=== PATIENT | male | born 1940 | race Caucasian/White ===

== ENCOUNTER 2017-12-11 10:00 | Inpatient (IN) | payer MEDICARE ==
[2017-12-11] MEDS ORDERED: Heparin 10,000 UNITS/1 ML VIAL 30,000 UNITS in Sodium Chloride 0.9% 1,000 ML FS SCH (10:15)
[2017-12-11] MEDS ORDERED: CEFAZOLIN/Water 2 GM/20 ML SYRINGE ONE (11:05)
[2017-12-11 11:21] LABS: #Eosinphils 0.1 thou/uL (0.0-0.7); #Lymphocytes 1.2 thou/uL (1.20-3.40); #Monocytes 0.5 thou/uL (0.11-0.59); #Neutrophils 3.5 thou/uL (1.40-6.50); %Basophils 0.6 % (0.0-1.0); %Eosinophils 1.4 % (0.0-10.0); %Lymphocytes 22.3 % (21.0-51.0); %Monocytes 9.2 % (0.0-10.0); %Neutrophils 66.4 % (42.0-75.0); Hemoglobin 13.2 g/dL (14.0-18.0); Mean Corpuscular HGB CONC 33.2 g/dL (32.0-36.0); Mean Corpuscular Hemoglobin 32.4 pg (27.0-31.0); Mean Corpuscular Volume 97.7 fl (80.0-94.0); Mean Platelet Volume 8.4 fL (7.4-10.4); Platelet Count 253 thou/uL (130-400); RBC Distribution Width 11.3 % (11.5-14.5); Red Blood Cell (RBC) Count 4.08 mill/uL (4.70-6.10); White Blood Cell (WBC) Count 5.3 thou/uL (4.8-10.8)
[2017-12-11 11:39] LABS: Anion Gap 12 mmol/L (10-20); BUN (Urea Nitrogen) 18 mg/dL (8.4-25.7); Calc. Creatinine Clearance 77 mL/min (70-130); Calcium 9.6 mg/dL (7.8-10.44); Carbon Dioxide 27 mmol/L (23-31); Chloride 105 mmol/L (98-107); Estimated GFR-MDRD 88; Glucose 104 mg/dL (83-110); Potassium 4.1 mmol/L (3.5-5.1); Sodium 140 mmol/L (136-145)
[2017-12-11] MEDS ORDERED: Albumin 5% 500 ML ONE (12:11)
[2017-12-11] MEDS ORDERED: Vecuronium 10 MG VIAL ONE ×2 (12:15→14:40)
[2017-12-11] MEDS ORDERED: Fentanyl 100 MCG/2 ML VIAL ONE ×2 (12:15)
[2017-12-11] MEDS ORDERED: Midazolam HCl 5 mg/5 ml Vial ONE (12:15)
[2017-12-11] MEDS ORDERED: Midazolam HCl 2 mg/2 ml Vial ONE (12:32)
[2017-12-11] MEDS ORDERED: Cardioplegic Soln 1,000 ML BAG ONE (14:40)
[2017-12-11] MEDS ORDERED: Magnesium 5 GM/10 ML VIAL ONE (14:40)
[2017-12-11] MEDS ORDERED: Protamine Sulfate 250 MG/25 ML VIAL ONE (14:40)
[2017-12-11] MEDS ORDERED: Heparin 30,000 units/30 ml VIAL ONE (14:40)
[2017-12-11] MEDS ORDERED: Thrombin 5000 UNITS/5 ML VIAL ONE (14:40)
[2017-12-11] MEDS ORDERED: Lidocaine 2% PF 100 mg/5 ml Syringe ONE (14:40)
[2017-12-11] MEDS ORDERED: Calcium Chloride 1 GM/10 ML Abboject SYRINGE ONE (14:40)
[2017-12-11] MEDS ORDERED: Nitroglycerin 50 MG/250 ML BOT ONE (14:40)
[2017-12-11] MEDS ORDERED: Aminocaproic Acid 5 GM/20 ML VIAL ONE (14:40)
[2017-12-11] MEDS ORDERED: Papaverine 60 MG/2 ML VIAL ONE (14:40)
[2017-12-11] MEDS ORDERED: Sodium Bicarb 50 MEQ/50 ML VIAL ONE (14:40)
[2017-12-11] MEDS ORDERED: Potassium Chloride 60 MEQ/30 ML VIAL ONE (14:40)
[2017-12-11] MEDS ORDERED: Lidocaine 1% PF 5 ML VIAL ONE (14:40)
[2017-12-11] MEDS ORDERED: Propofol 200 MG/20 ML VIAL ONE (14:40)
[2017-12-11] MEDS ORDERED: DOPamine 400 MG/10 ML VIAL ONE (14:40)
[2017-12-11] MEDS ORDERED: Heparin 5,000 UNITS/ML VIAL ONE (14:40)
[2017-12-11] MEDS ORDERED: HYDROcodone/Acetaminophen 5/325 mg Tablet PO PRN ×2 (15:34)
[2017-12-11] MEDS ORDERED: Nitroglycerin 50 MG/250 ML BOT 250 ML IVPB PRN (15:34)
[2017-12-11] MEDS ORDERED: Mag-Al 1200 mg/1200 mg/30 ML UDCUP PO PRN (15:34)
[2017-12-11] MEDS ORDERED: Acetaminophen 325 MG TAB PO PRN (15:34)
[2017-12-11] MEDS ORDERED: Phenylephrine 10 MG/NS 250 ML 250 ML IVPB PRN (15:34)
[2017-12-11] MEDS ORDERED: Promethazine HCl 25 MG/ML VIAL IM PRN (15:34)
[2017-12-11] MEDS ORDERED: hydrALAZINE 20 MG/ML VIAL SLOW IVP PRN (15:34)
[2017-12-11] MEDS ORDERED: Fentanyl 100 MCG/2 ML VIAL SLOW IVP PRN ×2 (15:34)
[2017-12-11] MEDS ORDERED: Norepinephrine 8 MG/0.9% NS 250 ML IVPB PRN (15:34)
[2017-12-11] MEDS ORDERED: Bisacodyl 5 MG TAB PO PRN (15:34)
[2017-12-11] MEDS ORDERED: DOPamine 400 MG/D5W 250 ML 250 ML IVPB PRN (15:34)
[2017-12-11] MEDS ORDERED: Post-Op Insulin Drip Protocol IVPB ONE (15:34)
[2017-12-11] MEDS ORDERED: Hetastarch 6% 500 ML 500 ML IVPB PRN (15:34)
[2017-12-11] MEDS ORDERED: Guaifenesin DM 100-10/5 ML UDCUP PO PRN (15:34)
[2017-12-11] MEDS ORDERED: Ondansetron HCl/PF 4 MG/2 ML Vial IVP PRN (15:34)
[2017-12-11] MEDS ORDERED: Potassium Chloride 20 MEQ/100 ML PREMIX BAG IVPB PRN (15:34)
[2017-12-11] MEDS ORDERED: Bisacodyl 10 MG SUPP PR PRN (15:34)
[2017-12-11] MEDS ORDERED: Magnesium Sulfate 5 GM in Sodium Chloride 0.9% 1,000 ML IV SCH (15:45)
[2017-12-11 16:20] LABS: #Eosinphils 0.1 thou/uL (0.0-0.7); #Lymphocytes 0.9 thou/uL (1.20-3.40); #Monocytes 0.7 thou/uL (0.11-0.59); #Neutrophils 9.1 thou/uL (1.40-6.50); %Basophils 0.4 % (0.0-1.0); %Eosinophils 0.9 % (0.0-10.0); %Lymphocytes 8.6 % (21.0-51.0); %Monocytes 6.5 % (0.0-10.0); %Neutrophils 83.6 % (42.0-75.0); Mean Corpuscular HGB CONC 34.1 g/dL (32.0-36.0); Mean Corpuscular Hemoglobin 33.3 pg (27.0-31.0); Mean Corpuscular Volume 97.7 fl (80.0-94.0); Mean Platelet Volume 8.2 fL (7.4-10.4); Platelet Count 191 thou/uL (130-400); RBC Distribution Width 11.1 % (11.5-14.5); Red Blood Cell (RBC) Count 3.01 mill/uL (4.70-6.10); White Blood Cell (WBC) Count 10.9 thou/uL (4.8-10.8)
[2017-12-11] MEDS ORDERED: Dextrose 50% Abboject 50 ML SYRINGE SLOW IVP PRN (16:20)
[2017-12-11] MEDS ORDERED: Dextrose 5% in Water 1,000 ML IV PRN (16:20)
[2017-12-11 16:23] LABS: INR-International Normal Ratio 1.3; PTT 32.6 SEC (22.9-36.1); Prothrombin Time 16.4 SEC (12.0-14.7)
--- NOTE | 2017-12-11 16:29 | RAD ---
CHEST ONE VIEW: History: Post open heart surgery. Comparison: None. FINDINGS: Patient is intubated with endotracheal tube tip in good position at the level of the clavicles. Right subclavian central venous catheter tip at the right atrium. Mediastinal drain is present. No pneumothorax. Mild pulmonary venous congestion. IMPRESSION: Expected post-operative changes without complication. POS: OFF
[2017-12-11 16:40] LABS: Anion Gap 10 mmol/L (10-20); BUN (Urea Nitrogen) 15 mg/dL (8.4-25.7); Calc. Creatinine Clearance 97 mL/min (70-130); Carbon Dioxide 23 mmol/L (23-31); Chloride 109 mmol/L (98-107); Estimated GFR-MDRD Greater than 90; Glucose 127 mg/dL (83-110); Potassium 4.1 mmol/L (3.5-5.1); Sodium 138 mmol/L (136-145)
[2017-12-11] MEDS: Sodium Chloride 0.9% 1,000 ML IV SCH (16:48)
[2017-12-11] MEDS: Insulin Regular 300 UNITS/3 ML VIAL SC PRN ×2 (16:53→20:08)
[2017-12-11] MEDS: Ketorolac Tromethamine 30 MG/ML VIAL IVP SCH ×2 (17:04→23:21)
--- NOTE | 2017-12-11 17:33 | OP ---
PREOPERATIVE DIAGNOSIS: Coronary artery disease. PROCEDURE PERFORMED: Coronary artery bypass graft x2, left internal mammary artery of good quality t o a nice quality 2.5 mm left anterior descending, good quality saphenous vein 1.25 mm obtuse marginal . SURGEON: Federico Severino M.D. RAG SORTER: Stefano Grace M.D. ANESTHESIA: General. TRANSFUSION: None. PROCEDURE IN DETAIL: After adequate anesthesia had been obtained, the patient was prepped and draped . Dr. Grace harvested the left greater saphenous vein and then I performed a median sternotomy. Aft er opening the sternum, the right pleura was entered in one small area and the left internal mammary artery was then harvested, patient heparinized, mammary divided distally and passed posterior to the thymus gland. Following this, aorta and right atrium were cannulated. Cardiopulmonary bypass was in stituted and vessels were inspected for grafting. The aorta was cross-clamped and a liter of del Nid o cardioplegic solution was given. Following this, the right pleura was widely opened to allow the h eart rotated into the right chest to allow access to the AV groove. The obtuse marginal was dissecte d back next to the atrial appendage where it was opened and saphenous vein anastomosis completed with 7-0 Prolene suture. DE GUZMAN to LAD was then anastomosis completed following which the mammary pedicle was secured to the myocardium. A 1.5 mm probe was attempted to be passed through the distal obtuse m arginal anastomosis; however, it was too large and 1 mm probe easily passed. This was prior to tying the suture line on the OM graft. Crossclamp was removed, partial occluding clamp placed, and a sing le proximal anastomosis performed on the aortic root. The patient was then weaned from cardiopulmona ry bypass, cannulas were removed, and aortic cannulation site secured with 4-0 Prolene suture. After obtaining good hemostasis, mediastinal and bilateral drains were placed, following which the sternum was reapproximated with vancomycin paste on the sternal edges, platelet-enriched blood, and platelet -poor plasma using #7 interrupted wire. Subcutaneous tissue and skin were then closed in layers. Th e patient is to be taken to the recovery room in guarded condition.
[2017-12-11] MEDS: CEFAZOLIN/Water 2 GM/20 ML SYRINGE SLOW IVP SCH (20:08)
[2017-12-11] MEDS ORDERED: Famotidine/PF 20 mg/2ml Vial SLOW IVP SCH (21:00)
--- NOTE | 2017-12-11 21:08 | EKG ---
Test Reason : JB Blood Pressure : / mmHG Vent. Rate : 079 BPM Atrial Rate : 079 BPM P-R Int : 166 ms QRS Dur : 082 ms QT Int : 370 ms P-R-T Axes : 072 046 066 degrees QTc Int : 424 ms Normal sinus rhythm with sinus arrhythmia Minimal voltage criteria for LVH, may be normal variant Borderline ECG No previous ECGs available Confirmed by TAWANNA NAPIER ([id number]) on 12/11/2017 9:07:24 PM Referred By: BLACK Confirmed By:TAWANNA NAPIER
[2017-12-11 21:52] LABS: Hemoglobin 10.6 g/dL (14.0-18.0)
[2017-12-11] MEDS: Atorvastatin Calcium 20 MG TAB PO SCH (22:37)
[2017-12-12] MEDS: Insulin Regular 300 UNITS/3 ML VIAL SC PRN ×2 (00:07→04:09)
[2017-12-12 02:58] LABS: Actual Bicarbonate (HCO3a) 20.3 mEq/L (22-26); Base Excess (BEa) -2.6 mEq/L (0 (+/-) 2.5); CO2 Tension 28.8 mmHg (35.0-45.0); Calcium, Ionized 1.1 mmol/L (1.12-1.30); Hematocrit-ABG 29.4 % (42.0-52.0); Hemoglobin (Hb) 10.2 g/dL (14.0-18.0); O2 Tension (PaO2) 151.2 mmHg (80.0-100.0); pH, Arterial 7.47 (7.35-7.45)
[2017-12-12 02:59] LABS: Analyzer IN Cardio ER; Puncture Site ALINE
[2017-12-12] MEDS: CEFAZOLIN/Water 2 GM/20 ML SYRINGE SLOW IVP SCH (04:00)
[2017-12-12 04:29] LABS: #Lymphocytes 0.7 thou/uL (1.20-3.40); #Monocytes 1.1 thou/uL (0.11-0.59); #Neutrophils 7.7 thou/uL (1.40-6.50); %Basophils 0.4 % (0.0-1.0); %Eosinophils 0.1 % (0.0-10.0); %Lymphocytes 7.3 % (21.0-51.0); %Monocytes 11.8 % (0.0-10.0); %Neutrophils 80.3 % (42.0-75.0); Hemoglobin 10.2 g/dL (14.0-18.0); Mean Corpuscular Hemoglobin 33.3 pg (27.0-31.0); Mean Corpuscular Volume 97.9 fl (80.0-94.0); Mean Platelet Volume 8.6 fL (7.4-10.4); Platelet Count 175 thou/uL (130-400); RBC Distribution Width 11.3 % (11.5-14.5); Red Blood Cell (RBC) Count 3.07 mill/uL (4.70-6.10); White Blood Cell (WBC) Count 9.5 thou/uL (4.8-10.8)
[2017-12-12 04:37] LABS: Anion Gap 10 mmol/L (10-20); BUN (Urea Nitrogen) 15 mg/dL (8.4-25.7); Calc. Creatinine Clearance 92 mL/min (70-130); Calcium 7.9 mg/dL (7.8-10.44); Carbon Dioxide 25 mmol/L (23-31); Chloride 110 mmol/L (98-107); Estimated GFR-MDRD Greater than 90; Glucose 124 mg/dL (83-110); Potassium 4.6 mmol/L (3.5-5.1); Sodium 140 mmol/L (136-145)
[2017-12-12] MEDS: Sodium Chloride 0.9% 1,000 ML IV SCH (05:44)
[2017-12-12] MEDS: Ketorolac Tromethamine 30 MG/ML VIAL IVP SCH ×4 (05:55→23:54)
[2017-12-12] MEDS ORDERED: Mineral Oil ENEMA PR PRN (07:36)
[2017-12-12] MEDS ORDERED: Bisacodyl 5 MG TAB PO PRN (07:36)
[2017-12-12] MEDS ORDERED: Guaifenesin DM 100-10/5 ML UDCUP PO PRN (07:36)
[2017-12-12] MEDS ORDERED: HYDROcodone/Acetaminophen 5/325 mg Tablet PO PRN (07:36)
[2017-12-12] MEDS ORDERED: Bisacodyl 10 MG SUPP PR PRN (07:36)
[2017-12-12] MEDS ORDERED: Milk Of Magnesia 30 ML UDCUP PO PRN (07:36)
[2017-12-12] MEDS ORDERED: Mag-Al 1200 mg/1200 mg/30 ML UDCUP PO PRN (07:36)
[2017-12-12] MEDS ORDERED: Nitroglycerin 0.4 MG TAB 1 EACH SL PRN (07:36)
--- NOTE | 2017-12-12 08:58 | RAD ---
EXAM: ONE VIEW CHEST: HISTORY: Status post open heart surgery. COMPARISON: 12/11/17. FINDINGS: Interval removal of endotracheal tube. Stable right-sided central venous catheter. Mediastinal drai nage catheter is demonstrated. Stable configuration of the cardiac silhouette. There is atheroscler osis of the aorta. There are pleural and parenchymal changes in the lung bases. No definite pneumot horax. IMPRESSION: Findings compatible with recent open heart surgery. Interval removal of endotracheal tube. POS: [facility]
[2017-12-12] MEDS ORDERED: Aspirin 325 MG TAB PO SCH (09:00)
[2017-12-12] MEDS: Famotidine 20 MG TAB PO SCH ×2 (09:10→20:27)
[2017-12-12] MEDS: Aspirin 325 mg Enteric Coated Tablet PO SCH (09:10)
--- NOTE | 2017-12-12 10:54 | PDOC.CTH ---
Cardiology Progress Note - Subjective Pt. seen this AM. POD #1. after 2 V CABG with a DE GUZMAN to the LAd and SVG to the L -circumflex-OM. He is doing well and denies complaints. The chest tubes are still in.. No events overnight. - Objective Vital Signs Temp Pulse Resp BP Pulse Ox 12/12/17 08:00 98.0 F 80 19 95/48 L 100 12/12/17 07:00 98.0 F 12/12/17 04:00 98.1 F 12/12/17 00:00 98.1 F 98 Weight 165 lb 9.074 oz 12/11/17 12/12/17 12/13/17 06:59 06:59 06:59 Intake Total 1784 240 Output Total 1298 120 Balance 486 120 - Physical Examination General/Neuro: alert & oriented x3 Neck: carotid US brisk Lungs: CTA Heart: RRR Other PE findings: chest tubes in. - Telemetry Telemetry Rhythm: NSR - Labs Result Diagrams: 12/12/17 04:05 12/12/17 04:05 - Assessment/Plan 1. CAD: s/p CABG. Stable and doing well. Resume preop meds. 2. Postop anemia. Stable. Review of Systems - Review of Systems EENTM: reports: no symptoms reported Respiratory: reports: no symptoms reported Cardiac (ROS): reports: no symptoms reported ABD/GI: reports: no symptoms reported : reports: no symptoms reported Musculoskeletal: reports: no symptoms reported Neurological: reports: no symptoms reported
--- NOTE | 2017-12-12 12:04 | CON ---
DATE OF SERVICE: 12/12/2017 REASON FOR CONSULTATION: ICU patient. HISTORY OF PRESENT ILLNESS: The patient is a 76-year-old white male with past medical history significant for hyperlipidemia and chest discomfort that has been progressing over a period of several years, but gotten worse here over the last 2-3 weeks. He had a cardiac catheterization which demonstrated 90% left main disease. He was subsequently in his usual state of health to a surgeon who has scheduled him for 2-vessel bypass surgery. He is postop day #1 from that surgery and there were no complications. He is doing extraordinarily well and denies any current fevers, chills, nausea, vomiting or chest discomfort. He is tolerating p.o. He is already very active in getting out of bed. He is off of all drips. PAST MEDICAL HISTORY: 1. Dyslipidemia. 2. Benign prostatic hypertrophy. 3. Osteoarthritis. 4. Coronary artery disease. PAST SURGICAL HISTORY: 1. Appendectomy. 2. Tonsillectomy. 3. Laminectomy. 4. Right hernia repair x2. 5. Vasectomy. 6. Right shoulder surgery. 7. Coronary artery bypass graft x2 vessels in 2018. SOCIAL HISTORY: Negative for alcohol, tobacco or illicit drug use. He has no exposure to chemicals, asbestosis, or tuberculosis. FAMILY HISTORY: Noncontributory. ALLERGIES: No known drug allergies. MEDICATIONS: Most of his inpatient medications were reviewed. No specific updates were made at this time. REVIEW OF SYSTEMS: General, head, ears, eyes, nose, throat, cardiovascular, respiratory, GI, , musculoskeletal, neurologic and skin is negative except as mentioned in the HPI. PHYSICAL EXAMINATION: VITAL SIGNS: Afebrile, pulse 89, blood pressure 122/51, respirations 18, saturation 100% on room air. GENERAL: Patient is awake, alert, in no apparent distress. LUNGS: Excellent air entry. Dependent crackles are present on the left. HEART: Normal rate, regular. ABDOMEN: Soft, nontender, nondistended. Bowel sounds are positive. MUSCULOSKELETAL: No cyanosis or clubbing. There is no pitting in the bilateral lower extremities. GENITOURINARY: No Chamberlain catheter. NEUROLOGIC: Grossly nonfocal. LABORATORY DATA: WBC 9.5 with stable hemoglobin 10.2, platelets 175,000. INR 1.3. Basic metabolic profile is completely unremarkable. Glucose is perfect at 128. IMAGING: Chest x-ray demonstrates sternotomy wires are in good position. There is thoracostomy drain on the left. There is a little bit of atelectasis evident in the right base. No obvious acute cardiopulmonary abnormality is identified. There is a right subclavian central venous catheter which terminates in good position. ASSESSMENT: 1. Acute hypoxic respiratory failure, resolved. 2. Coronary artery disease, status post coronary artery bypass graft x2 vessels , postop day #1. PLAN: The patient is doing absolutely fantastic from this procedure. Pulmonary will continue to follow along while he remains in this location, but from my perspective, he is stable for transition to the floor. 70 minutes have been devoted to this patient in various activities. I personally reviewed all imaging studies and laboratory data noted within this document. For at least half of this time, I was interacting with the patient at the bedside or coordinating care with the care team. For the remainder of the time I was immediately available to the patient in the hospital unit. WOOD
[2017-12-12] MEDS: Atorvastatin Calcium 20 MG TAB PO SCH (20:27)
[2017-12-12] MEDS: HYDROcodone/Acetaminophen 5/325 mg Tablet PO PRN (20:49)
--- NOTE | 2017-12-12 22:02 | EKG ---
Test Reason : Blood Pressure : / mmHG Vent. Rate : 092 BPM Atrial Rate : 092 BPM P-R Int : 154 ms QRS Dur : 082 ms QT Int : 388 ms P-R-T Axes : 083 070 075 degrees QTc Int : 479 ms Normal sinus rhythm Minimal voltage criteria for LVH, may be normal variant Borderline ECG When compared with ECG of 11-DEC-2017 11:38, QT has lengthened Confirmed by TAWANNA NAPIER ([id number]) on 12/12/2017 10:02:03 PM Referred By: BLACK Confirmed By:TAWANNA NAPIER
[2017-12-13 04:54] LABS: Anion Gap 10 mmol/L (10-20); BUN (Urea Nitrogen) 14 mg/dL (8.4-25.7); Calc. Creatinine Clearance 81 mL/min (70-130); Calcium 8.5 mg/dL (7.8-10.44); Carbon Dioxide 25 mmol/L (23-31); Chloride 102 mmol/L (98-107); Estimated GFR-MDRD Greater than 90; Glucose 125 mg/dL (83-110); Potassium 4.4 mmol/L (3.5-5.1); Sodium 133 mmol/L (136-145)
[2017-12-13 05:09] LABS: Band 4 % (5-11); Hemoglobin 10.5 g/dL (14.0-18.0); Lymphocytes 5 % (21-51); MDiff Complete? YES; Macrocytosis SLIGHT = 6-15 cells (100X) (0-5/hpf); Mean Corpuscular HGB CONC 33.5 g/dL (32.0-36.0); Mean Corpuscular Hemoglobin 33.4 pg (27.0-31.0); Mean Corpuscular Volume 99.6 fl (80.0-94.0); Mean Platelet Volume 8.7 fL (7.4-10.4); Monocytes 11 % (0-10); Neutrophil 79 % (42-75); PLT Morphology Comment Appears Adequate; Platelet Count 199 thou/uL (130-400); RBC Distribution Width 11.5 % (11.5-14.5); Reactive Lymphocytes 1 % (0-10); Red Blood Cell (RBC) Count 3.16 mill/uL (4.70-6.10); White Blood Cell (WBC) Count 9.1 thou/uL (4.8-10.8)
[2017-12-13] MEDS ORDERED: Digoxin 0.5 MG/2 ML AMP SLOW IVP SCH (06:30)
[2017-12-13] MEDS: Ketorolac Tromethamine 30 MG/ML VIAL IVP SCH (07:30)
[2017-12-13] MEDS: HYDROcodone/Acetaminophen 5/325 mg Tablet PO PRN (08:56)
[2017-12-13] MEDS: Potassium Chloride 10 MEQ TAB PO SCH (08:56)
[2017-12-13] MEDS: Tamsulosin HCl 0.4 MG CAP PO SCH (08:56)
[2017-12-13] MEDS: Finasteride 5 MG TAB PO SCH (08:56)
[2017-12-13] MEDS: Furosemide 40 MG TAB PO SCH (08:57)
[2017-12-13] MEDS: Aspirin 325 mg Enteric Coated Tablet PO SCH (08:57)
[2017-12-13] MEDS: Famotidine 20 MG TAB PO SCH ×2 (08:57→20:13)
[2017-12-13] MEDS ORDERED: Sotalol HCl 80 MG TAB PO SCH ×2 (09:15→21:00)
[2017-12-13] MEDS ORDERED: Flecainide 50 MG TAB PO SCH ×2 (09:30)
--- NOTE | 2017-12-13 09:46 | PDOC.CTH ---
<Adry Rai - Last Filed: 12/13/17 09:50> Cardiology Progress Note - Subjective The pt seen and examined. No overnight events. No cardiac complaints. - Objective Vital Signs Temp Pulse Resp BP Pulse Ox 12/13/17 08:00 97.4 F L 121 H 20 118/55 L 98 12/13/17 06:36 110 H 12/13/17 04:14 97.8 F 86 16 121/76 96 12/12/17 22:30 97.9 F 84 18 115/56 L 95 Weight 167 lb 14.4 oz 12/12/17 12/13/17 12/14/17 06:59 06:59 06:59 Intake Total 1784 1300 Output Total 1298 450 Balance 486 850 - Physical Examination General/Neuro: alert & oriented x3 Neck: no JVD present Lungs: CTA Heart: other: (irregular) Abdomen: soft Extremities: other: (No edema) - Telemetry Telemetry Rhythm: Afib 90-120s - Labs Result Diagrams: 12/13/17 04:11 12/13/17 04:11 - Assessment/Plan 1. Post Afib - Remains in AFib with HR 90-120s since @ 0530 on 12/13/17; Flacainide 50mg BID; If he does not convert to back to SR by tomorrow AM, need to start anticoagulants for CVA prevention from AFib 2. CAD with s/p CABG x 2 with a DE GUZMAN-LAD and SVG to the E-gwgalydfye-SO. stable with ASA, BBlocker, Statin. 3. Hyperlipidemia - on Statin 4. Postop anemia - Stable. * If he does not convert to back to SR by tomorrow AM, need to start anticoagulants for CVA prevention from AFib if Surgeon is agreed with the plan. Review of Systems - Review of Systems Constitutional: reports: no symptoms reported EENTM: reports: no symptoms reported Respiratory: reports: no symptoms reported Cardiac (ROS): reports: no symptoms reported ABD/GI: reports: no symptoms reported <Colt aGribay - Last Filed: 12/13/17 14:20> Cardiology Progress Note - Objective Vital Signs Temp Pulse Pulse Pulse Resp BP BP 12/13/17 14:12 98.6 F 12/13/17 13:31 100.0 F H 12/13/17 12:40 98.8 F 85 12/13/17 12:00 100.4 F H 92 18 12/13/17 11:34 108 H 94 113/56 L 95/51 L 12/13/17 08:00 97.4 F L 121 H 20 12/13/17 06:36 110 H 12/13/17 04:14 97.8 F 86 16 BP Pulse Ox Pulse Ox Pulse Ox 12/13/17 14:12 12/13/17 13:31 12/13/17 12:40 106/51 L 12/13/17 12:00 95/51 L 100 12/13/17 11:34 97 100 12/13/17 08:00 118/55 L 98 12/13/17 06:36 12/13/17 04:14 121/76 96 Weight 167 lb 14.4 oz 12/12/17 12/13/17 12/14/17 06:59 06:59 06:59 Intake Total 1784 1300 Output Total 1298 450 Balance 486 850 - Labs Result Diagrams: 12/13/17 04:11 12/13/17 04:11 - Assessment/Plan Pt. seen and eval. by me. I agree with the A/P by the AIR MOTOR REPAIRER. We have discussed the plan and I agree. Overall he is doing well s/p CABG. The Afib. hopefully will convert to NSR with the flecainide. If so, I will continue that for 1 month and then d/c.
[2017-12-13] MEDS ORDERED: Carvedilol 3.125 MG TAB PO SCH ×2 (10:00)
[2017-12-13] MEDS: Acetaminophen 325 MG TAB PO PRN (13:19)
--- NOTE | 2017-12-13 14:39 | PRG ---
DATE OF SERVICE: 12/13/2017 SERVICE: Pulmonary Medicine. INTERVAL HISTORY: The patient is doing fine from a cardiovascular and respiratory standpoint. He is breathing comfortably. That being said, he has complete lack of energy with malaise. He also endor ses a little bit of myalgia. He has been working with physical therapy and got out of bed into a hollie ir a couple of times on a daily basis. He has been coughing a little bit. It was starting to settle down a little bit, but the sputum character is changing to pale yellow color. He had a low grade te mperature to 100 degrees. Otherwise, he is doing fairly well. PHYSICAL EXAMINATION: VITAL SIGNS: Afebrile currently with a T-max of 100.4, pulse 85, blood pressure 106/51, respirations 18, saturation 100% on room air. GENERAL: Patient is awake, alert, in no apparent distress. LUNGS: Decent air entry. There are some crackles present on the left. No rhonchi or wheezing are a ppreciated. HEART: Normal rate, regular. ABDOMEN: Soft, nontender, nondistended. Bowel sounds are positive. MUSCULOSKELETAL: No cyanosis or clubbing. No pitting in the bilateral lower extremities. NEUROLOGIC: Grossly nonfocal. LABORATORY DATA: WBC 9.1, hemoglobin 10.5, platelets 199,000. INR 1.3. Basic metabolic profile is essentially unremarkable with a sodium of 133. ASSESSMENT: 1. Acute hypoxic respiratory failure, resolved. 2. Coronary artery disease, status post coronary bypass graft x2 vessels, postoperative day #1. 3. Low grade temperature of 100.4 degrees. DISCUSSION AND PLAN: If the patient has a real fever, we will dewey culture him and also do a respirat ory virus profile as he seems to have significant malaise and a little myalgia, possibly consistent w ith viral prodrome. We will continue making efforts on mobilize the patient. If dewey culture is perf ormed because he develops increasing signs of sepsis, empiric antibiotics need to be strongly conside red. Pulmonary will continue to follow through the weekend.
[2017-12-13] MEDS: Carvedilol 3.125 MG TAB PO SCH (17:04)
[2017-12-13] MEDS: Atorvastatin Calcium 20 MG TAB PO SCH (20:13)
[2017-12-13] MEDS: Flecainide 50 MG TAB PO SCH (20:13)
[2017-12-13] MEDS ORDERED: Doxazosin Mesylate 4 MG TAB PO SCH (21:00)
[2017-12-14] MEDS: Acetaminophen 325 MG TAB PO PRN (03:56)
[2017-12-14] MEDS: Flecainide 50 MG TAB PO SCH (10:06)
[2017-12-14] MEDS: Potassium Chloride 10 MEQ TAB PO SCH (10:07)
[2017-12-14] MEDS: Finasteride 5 MG TAB PO SCH (10:07)
[2017-12-14] MEDS: Furosemide 40 MG TAB PO SCH (10:07)
[2017-12-14] MEDS: Tamsulosin HCl 0.4 MG CAP PO SCH (10:07)
[2017-12-14] MEDS: Famotidine 20 MG TAB PO SCH ×2 (10:08→20:00)
[2017-12-14] MEDS: Carvedilol 3.125 MG TAB PO SCH (10:08)
[2017-12-14] MEDS: Aspirin 325 mg Enteric Coated Tablet PO SCH (10:08)
--- NOTE | 2017-12-14 13:29 | PRG ---
DATE OF SERVICE: 12/14/2017 SUBJECTIVE: This morning, he is awake, alert, and is weak. No cough. OBJECTIVE: VITAL SIGNS: Sats are 96 on room air, respirations 18, temperature 99, blood pressure 96/52. CHEST: Decreased breath sounds, no wheezing. CARDIAC: Normal S1, S2. IMPRESSION: Status post coronary artery bypass graft, bronchitis, low-grade fever. Continue nebulizer treatments and supportive care. We will follow.
--- NOTE | 2017-12-14 17:12 | PDOC.CTH ---
Cardiology Progress Note - Subjective He is doing well. He walked with PT today and is worn out afterwards. - Objective Vital Signs Temp Pulse Resp BP Pulse Ox 12/14/17 15:36 99.5 F 104 H 18 106/50 L 95 12/14/17 11:38 99.4 F 88 18 96/52 L 96 12/14/17 07:40 98.7 F 87 20 116/54 L 92 L Weight 166 lb 3.2 oz 12/13/17 12/14/17 12/15/17 06:59 06:59 06:59 Intake Total 1300 Output Total 450 400 Balance 850 -400 - Physical Examination General/Neuro: alert & oriented x3, NAD Neck: no JVD present Lungs: unlabored respirations Heart: other: (Irreg) Abdomen: NT/ND Extremities: + edema B (1+) - Telemetry Telemetry Rhythm: Aflutter varilable av blo - Labs Result Diagrams: 12/13/17 04:11 12/13/17 04:11 - Assessment/Plan 1. Severe LM disease. 2. Post op afib/flutter. 3. S/p CABG PLAN: - Continue flecainide, will increase dose to 100 mg BID. - If he does not convert to sinus within 48hrs will discuss full anticoagulation for prevention of stroke. Would continue for 1 month post surgery. - Continue BB as well. - He is symtomatic from afib/flutter and is not letting him do PT well. Will consider cardioversion if it does not resolve.
[2017-12-14] MEDS ORDERED: Flecainide 50 MG TAB PO SCH (18:00)
[2017-12-14] MEDS ORDERED: Digoxin 0.5 MG/2 ML AMP SLOW IVP SCH (19:15)
[2017-12-14] MEDS: Atorvastatin Calcium 20 MG TAB PO SCH (20:00)
[2017-12-14] MEDS ORDERED: Metoprolol Tartrate 25 MG TAB PO SCH (21:00)
[2017-12-15] MEDS ORDERED: Diphenoxylate HCl/Atropine Tablet PO PRN (07:17)
[2017-12-15] MEDS: Carvedilol 6.25 MG TAB PO SCH ×2 (08:57→16:25)
[2017-12-15] MEDS: Flecainide 50 MG TAB PO SCH ×2 (08:57→21:29)
[2017-12-15] MEDS: Famotidine 20 MG TAB PO SCH ×2 (08:57→21:29)
[2017-12-15] MEDS: Aspirin 325 mg Enteric Coated Tablet PO SCH (08:57)
[2017-12-15] MEDS: Tamsulosin HCl 0.4 MG CAP PO SCH (08:58)
--- NOTE | 2017-12-15 13:03 | PDOC.CTH ---
Cardiology Progress Note - Subjective he is doing well. He has worked with PT today and feels better now that he is rate controlled. - Objective Vital Signs Temp Pulse Pulse Pulse Resp BP BP 12/15/17 12:30 98 102 H 127/58 L 12/15/17 12:00 98.1 F 79 18 12/15/17 08:57 142/64 H 12/15/17 08:00 97.7 F 112 H 16 12/15/17 04:00 98.8 F 95 16 BP BP BP Pulse Ox Pulse Ox Pulse Ox 12/15/17 12:30 121/58 L 94 L 97 12/15/17 12:00 108/50 L 95 12/15/17 08:57 12/15/17 08:00 142/64 H 96 12/15/17 04:00 124/98 H 94 L Weight 165 lb 14.4 oz 12/14/17 12/15/17 12/16/17 06:59 06:59 06:59 Output Total 400 Balance -400 - Physical Examination General/Neuro: alert & oriented x3, NAD Neck: no JVD present Lungs: unlabored respirations Heart: other: (irreg) Abdomen: NT/ND Extremities: other: (no edema) - Telemetry Telemetry Rhythm: Aflutter mike block 70's - Labs Result Diagrams: 12/13/17 04:11 12/13/17 04:11 - Assessment/Plan 1. Severe LM disease. 2. Post op afib/flutter. 3. S/p CABG PLAN: - Continue flecainide - Discussed with Dr. Severino about starting full anticoagulation and he is ok from surgical standpoint. Will star Lovenox. - Continue BB. - He is symptomatic from flutter and is not letting him do PT well. Will make NPO past midnight in preparation for RENATO/cardioversion if it does not resolve over noght. Dr. Garibay to follow tomorrow.
[2017-12-15] MEDS: Enoxaparin Sodium 80 MG/0.8 ML SYRINGE SC SCH (21:27)
[2017-12-15] MEDS: Atorvastatin Calcium 20 MG TAB PO SCH (21:29)
[2017-12-15] MEDS ORDERED: metroNIDAZOLE 500 MG TAB PO SCH (23:00)
[2017-12-16] MEDS: metroNIDAZOLE 500 MG TAB PO SCH ×3 (10:05→21:25)
[2017-12-16] MEDS: Flecainide 50 MG TAB PO SCH ×2 (10:05→21:25)
[2017-12-16] MEDS: Tamsulosin HCl 0.4 MG CAP PO SCH (10:06)
[2017-12-16] MEDS: Aspirin 325 mg Enteric Coated Tablet PO SCH (10:06)
[2017-12-16] MEDS: Famotidine 20 MG TAB PO SCH ×2 (10:06→21:25)
[2017-12-16] MEDS: Carvedilol 6.25 MG TAB PO SCH ×2 (10:06→16:25)
[2017-12-16] MEDS: Enoxaparin Sodium 80 MG/0.8 ML SYRINGE SC SCH ×2 (10:06→21:25)
--- NOTE | 2017-12-16 13:05 | PDOC.CTH ---
<Adry Rai - Last Filed: 12/16/17 13:07> Cardiology Progress Note - Subjective The pt seen and examined. No overnight events. No cardiac complaints. He has walked in the room for more than 10 times today without any cardiac complaints. - Objective Vital Signs Temp Pulse Resp BP BP Pulse Ox 12/16/17 11:40 98 F 82 18 105/55 L 98 12/16/17 10:06 127/92 H 12/16/17 08:30 97.9 F 78 18 12/16/17 08:00 97.9 F 78 18 134/68 98 12/16/17 05:02 98.2 F 89 16 120/59 L 93 L Weight 158 lb 8 oz 12/15/17 12/16/17 12/17/17 06:59 06:59 06:59 Intake Total 140 Output Total 400 Balance -400 140 - Physical Examination General/Neuro: alert & oriented x3 Neck: no JVD present Lungs: CTA Heart: RRR Abdomen: soft Extremities: other: (No edema) - Telemetry Telemetry Rhythm: SR - Labs Result Diagrams: 12/13/17 04:11 12/13/17 04:11 - Assessment/Plan 1. Post-op Afib - Afib @ 0530 on 12/13/17 to SR @ 0340 on 12/16/17 with Flacainide 50mg BID and Lovenox BID and ASA; order EP consult 2. CAD with s/p CABG x 2 with a DE GUZMAN-LAD and SVG to the L-sjewoqweoh-SU. stable with ASA, BBlocker, Statin. 3. Hyperlipidemia - on Statin 4. Postop anemia - Stable. 5. C-diff - stable; MAR reviewed Review of Systems - Review of Systems Constitutional: reports: no symptoms reported EENTM: reports: no symptoms reported Respiratory: reports: no symptoms reported Cardiac (ROS): reports: no symptoms reported ABD/GI: reports: no symptoms reported : reports: no symptoms reported Musculoskeletal: reports: no symptoms reported <Colt Garibay - Last Filed: 12/16/17 16:47> Cardiology Progress Note - Objective Vital Signs Temp Pulse Pulse Pulse Resp BP BP 12/16/17 16:25 127/92 H 12/16/17 16:00 98 F 82 16 12/16/17 14:10 87 81 126/61 12/16/17 11:40 98 F 82 18 12/16/17 10:06 127/92 H 12/16/17 09:41 87 81 126/61 12/16/17 08:30 97.9 F 78 18 12/16/17 08:00 97.9 F 78 18 12/16/17 05:02 98.2 F 89 16 BP BP Pulse Ox Pulse Ox Pulse Ox 12/16/17 16:25 12/16/17 16:00 112/54 L 94 L 12/16/17 14:10 93/45 L 97 95 12/16/17 11:40 105/55 L 98 12/16/17 10:06 12/16/17 09:41 118/57 L 97 95 12/16/17 08:30 12/16/17 08:00 134/68 98 12/16/17 05:02 120/59 L 93 L Weight 158 lb 8 oz 12/15/17 12/16/17 12/17/17 06:59 06:59 06:59 Intake Total 140 Output Total 400 Balance -400 140 - Labs Result Diagrams: 12/13/17 04:11 12/13/17 04:11 - Assessment/Plan Pt. seen and eval. by me I agree withthe A/P by the OUTSOLE CASER. the aflutter has resolved. he is at risk of this returning. I will discuss with EP and request their opinion about possible ablation. This will likely need to be done when the C.Diff has improved. Otherwise he is doing well s/p CABG.
[2017-12-16] MEDS: Atorvastatin Calcium 20 MG TAB PO SCH (21:25)
[2017-12-17 05:52] LABS: Hemoglobin 11.1 g/dL (14.0-18.0); Platelet Count 361 thou/uL (130-400)
[2017-12-17] MEDS: Tamsulosin HCl 0.4 MG CAP PO SCH (09:30)
[2017-12-17] MEDS: Famotidine 20 MG TAB PO SCH ×2 (09:30→21:30)
[2017-12-17] MEDS: metroNIDAZOLE 500 MG TAB PO SCH ×3 (09:30→21:30)
[2017-12-17] MEDS: Carvedilol 6.25 MG TAB PO SCH ×2 (09:30→17:21)
[2017-12-17] MEDS: Aspirin 325 mg Enteric Coated Tablet PO SCH (09:30)
[2017-12-17] MEDS: Flecainide 50 MG TAB PO SCH ×2 (09:30→21:32)
[2017-12-17] MEDS: Enoxaparin Sodium 80 MG/0.8 ML SYRINGE SC SCH ×2 (09:30→21:29)
[2017-12-17 15:26] LABS: Actual Bicarbonate (HCO3a) 22.7 mEq/L (22-26); Base Excess (BEa) -0.7 mEq/L (0 (+/-) 2.5); CO2 Tension 33.5 mmHg (35.0-45.0); O2 Tension (PaO2) 466.3 mmHg (80.0-100.0); pH, Arterial 7.45 (7.35-7.45)
[2017-12-17 15:27] LABS: Analyzer IN Cardio OR; Calcium, Ionized 1.1 mmol/L (1.12-1.30); Hematocrit-ABG 30.4 % (42.0-52.0); Hemoglobin (Hb) 11.5 g/dL (14.0-18.0); Puncture Site ALINE
[2017-12-17 15:29] LABS: Analyzer IN Cardio OR
[2017-12-17 15:30] LABS: Actual Bicarbonate (HCO3a) 22.5 mEq/L (22-26); CO2 Tension 36.9 mmHg (35.0-45.0); O2 Tension (PaO2) 331.2 mmHg (80.0-100.0)
[2017-12-17 15:30] LABS: Actual Bicarbonate (HCO3v) 24 mEq/L (22-26); Base Excess -1.7 mEq/L (0 (+/- 2.5)); Calcium, Ionized 1.05 mmol/L (1.16-1.32); Chloride (ABG LAB) 104 mmol/L (98-106); Hematocrit-VBG 23.2 % (37-51); Hemoglobin (Hb) 8.4 g/dL (12.6-17.4); Potassium - ABG Lab 4.3 mmol/L (3.70-5.30); Sodium 139.7 mmol/L (133-146); pH (venous) 7.37 (7.35-7.45)
[2017-12-17 15:31] LABS: Analyzer IN Cardio OR; Base Excess (BEa) -1.9 mEq/L (0 (+/-) 2.5); Hemoglobin (Hb) 8.4 g/dL (14.0-18.0); Puncture Site ALINE
[2017-12-17 15:31] LABS: Actual Bicarbonate (HCO3a) 22.7 mEq/L (22-26); Base Excess (BEa) -1.6 mEq/L (0 (+/-) 2.5); CO2 Tension 35.9 mmHg (35.0-45.0); O2 Tension (PaO2) 430.5 mmHg (80.0-100.0); pH, Arterial 7.42 (7.35-7.45)
[2017-12-17 15:32] LABS: Analyzer IN Cardio OR; Calcium, Ionized 1.1 mmol/L (1.12-1.30); Hematocrit-ABG 24.9 % (42.0-52.0); Hemoglobin (Hb) 8.9 g/dL (14.0-18.0); Puncture Site ALINE
[2017-12-17] MEDS: Atorvastatin Calcium 20 MG TAB PO SCH (21:30)
--- NOTE | 2017-12-17 23:27 | PDOC.CTH ---
Cardiology Progress Note - Subjective Pt. seen and eval. by me. He feels a little better today but still having frequent stools.He denies any cardiac complaints. - Objective Vital Signs Temp Pulse Resp BP BP Pulse Ox 12/17/17 20:03 98.8 F 88 14 97/51 L 93 L 12/17/17 17:21 127/92 H 12/17/17 16:00 98.9 F 95 14 121/53 L 95 12/17/17 12:00 98.3 F 102 H 20 112/76 95 Weight 158 lb 14.4 oz 12/16/17 12/17/17 12/18/17 06:59 06:59 06:59 Intake Total 996 579 2601 Balance 975 395 7578 - Physical Examination General/Neuro: alert & oriented x3 Neck: carotid US brisk Lungs: CTA Heart: other: (irreg.) Abdomen: NT/ND - Labs Result Diagrams: 12/17/17 05:14 12/17/17 05:14 - Assessment/Plan 1. CAD: s/p CABG. doing well. 2. Afib/flutter. EP will see the pt. 3. C.Diff. continue Flagyl
--- NOTE | 2017-12-18 00:44 | CON ---
DATE OF CONSULTATION: 12/17/2017 ELECTROPHYSIOLOGY CONSULTATION REPORT REFERRING PHYSICIAN: Radha Garibay MD I am seeing Mr. 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 His problems are: 1. Postoperative paroxysmal atrial fibrillation/flutter. A. Flecainide use postoperatively organized the patient's atrial flutter, but still has recurrent at rial fibrillation. Intermittent sinus rhythm is also seen. 2. Coronary artery disease. A. Symptomatic dyspnea, prompting left heart catheterization noticing 90% left main disease, status post 2-vessel bypass surgery on 12/11/2017. 3. No history of LV dysfunction. 4. Mild postoperative anemia. 5. Postop bronchitis, low-grade fever. 6. History of dyslipidemia. ALLERGIES: None noted. MEDICATIONS: Medications at home include glucosamine and chondroitin, vitamin B12, vitamin C, turmer ic capsule, fish oil supplements, aspirin, Crestor, calcium carbonate, doxazosin. SUBJECTIVE: Mr. Augustin is here after he was discovered to have a left main disease, underwent 2-vess el coronary artery bypass grafting surgery on the on an elective basis. Postoperatively, his rec overy was marked by transient mild bronchitis, as well as developing event of atrial fibrillation. H bowen was treated with flecainide, but the flecainide seems to have organized his fibrillation to flutter . His rates intermittently are not well controlled. He actually returned to sinus rhythm, but again atrial fibrillation/flutter has been recurrent since. He has received Lovenox for anticoagulation. He has mild palpitations with these episodes. Denied dizziness or loss of consciousness. No chest pains. No fever, chills, or cough. REVIEW OF SYSTEMS: Rest of 12-point system is otherwise unremarkable. PAST MEDICAL HISTORY: As above. He also has a history of BPH, osteoarthritis. PAST SURGICAL HISTORY: Also includes the recent bypass surgery x2 vessels, appendectomy, tonsillecto my, laminectomy, right hernia repair x2, vasectomy, right shoulder surgery. FAMILY HISTORY: Noncontributory. OBJECTIVE DATA: VITAL SIGNS: Blood pressure currently 112/76, heart rate 102, respirations 20, temperature 98.3 degr ees Fahrenheit. GENERAL: Alert and oriented man in no apparent distress. NECK: Supple. Jugular veins are not distended. CHEST: Coarse. No crackles. CARDIAC: Heart sounds are irregular. S1, S2 are variable. No murmur or gallop. ABDOMEN: Benign. Bowel sounds are positive. EXTREMITIES: Lower extremities without edema, clubbing, or cyanosis. Pulses are adequate. NEUROLOGIC: The patient is nonfocal. MUSCULOSKELETAL: No joint swelling or deformities. SKIN: Without rash. DATABASE: The EKG is reviewed. Initial EKG reveals sinus rhythm on the with a rate of 79 beats per minute, nonspecific ST-T changes, QTC is 424 milliseconds. Subsequent EKGs revealed development of atrial fibrillation, showed there were PACs on the , and subsequent episodes of atrial fibrilla tion are noted and heart rates in the 120s. On the , the patient seems to have been sustaining a n typical atrial flutter with high rates in the 150s and 160s are documented. There is a clear trans ition from fibrillation to flutter was also seen. The flutter seems to be typical isthmus-dependent atrial flutter based on the EKGs and leads available to me. Subsequently, he is returning to sinus r hythm, but then further atrial flutter and fibrillation episodes are also seen. This is on the . LABORATORY DATA: White count is 9.1, hemoglobin 10.5, platelet count is 199. INR is 1.3. Sodium 13 3, potassium 4.4, BUN is 14, and creatinine is 0.8. ASSESSMENT AND PLAN: Mr. Augustin is a pleasant 76-year-old man with postoperative atrial fibrillation /flutter. This so far not sufficiently suppressive with 100 mg twice a day flecainide. We discussed treatment options. Atrial flutter ablation could be a consideration, but it would not t woody care of his atrial fibrillation tendency. This is likely made worse by the acute recovery from b ypass surgery. This could be a difficult proposition to increase the flecainide further in this miranda ent who was cleared for coronary artery disease, although not expecting him to have further myocardia l ischemia. On the other hand, it might be reasonable to consider switching him to a more potent ant iarrhythmic medication. This could include amiodarone if pulmonary status is stable versus Multaq. He will likely need anticoagulation long-term after requiring surgery. If atrial fibrillation episod es do not settle, he could clearly be a candidate for an ablation procedure as well. We will again discuss with Dr. Garibay. Thank you for the consult.
[2017-12-18] MEDS: Amiodarone 200 MG TAB PO SCH ×3 (07:54→20:36)
[2017-12-18] MEDS: Famotidine 20 MG TAB PO SCH ×2 (07:55→20:36)
[2017-12-18] MEDS: Enoxaparin Sodium 80 MG/0.8 ML SYRINGE SC SCH (07:55)
[2017-12-18] MEDS: Aspirin 81 mg Enteric Coated Tablet PO SCH (07:55)
[2017-12-18] MEDS: metroNIDAZOLE 500 MG TAB PO SCH ×3 (07:55→20:36)
[2017-12-18] MEDS: Tamsulosin HCl 0.4 MG CAP PO SCH (07:55)
[2017-12-18] MEDS: Carvedilol 6.25 MG TAB PO SCH ×2 (07:55→18:09)
--- NOTE | 2017-12-18 13:25 | PRG ---
DATE OF SERVICE: 12/18/2017 SUBJECTIVE: Mr. Augustin seems to be doing fair although he continues to have atrial fibrillation/flut ter with rapid rates. OBJECTIVE: VITAL SIGNS: Blood pressure 148/68, heart rate 123, respirations 20, temperature 98.6 degrees Fahren heit. GENERAL: He is alert and oriented man in no apparent distress. NECK: Supple. Jugular veins not distended. CHEST: Coarse without crackles. CARDIOVASCULAR: Heart sounds are irregularly irregular. S1, S2, variable. Midsternal scar noted. ABDOMEN: Benign. Bowel sounds positive. EXTREMITIES: Lower extremities without edema, clubbing or cyanosis. Telemetry screens reveals atypical atrial flutter/fibrillation alternating. LABORATORY DATA: None new. ASSESSMENT AND PLAN: Mr. Augustin is a pleasant 76-year-old man with history of left main disease, sta tus post bypass surgery this admission on 12/13/2017. He had atrial fibrillation and flutter postope ratively. Flecainide failed to control of the arrhythmias and we switched him to amiodarone now. Th e rates are reasonably controlled. Also, consider anticoagulation agents whenever it is surgically f easible. For now, he is on Lovenox. His flecainide was stopped yesterday. We will continue monitoring the transition of on telemet ry for at least another 24 hours.
[2017-12-18] MEDS: Acetaminophen 325 MG TAB PO PRN (14:04)
--- NOTE | 2017-12-18 14:43 | PDOC.CTH ---
Cardiology Progress Note - Subjective Pt. was seen today. No new events or complaints. He remains in Afib with RVR. - Objective Vital Signs Temp Pulse Resp BP BP BP Pulse Ox 12/18/17 14:02 99.4 F 12/18/17 11:57 101.7 F H 108 H 20 120/63 96 12/18/17 08:00 98.6 F 123 H 20 148/68 H 96 12/18/17 07:55 127/92 H 12/18/17 07:45 98.6 F 123 H 20 12/18/17 03:35 98.7 F 107 H 22 H 127/63 94 L Weight 166 lb 6.4 oz 12/17/17 12/18/17 12/19/17 06:59 06:59 06:59 Intake Total 960 1480 240 Balance 960 1480 240 - Physical Examination General/Neuro: alert & oriented x3 Neck: carotid US brisk Lungs: CTA Heart: other: (irreg.) Abdomen: NT/ND Other PE findings: sternal wound healing well. - Labs Result Diagrams: 12/17/17 05:14 12/17/17 05:14 - Assessment/Plan 1. Post Afib - Remains in and out AFib/flutter with HR 90-120s since @ 0530 on 12/13/17; Flecainide 50mg BID did not control the arrhythmias.;He will start amiodarone today. He may need cardioversion prior to d/c and then possible ablation in the future. He remains on Lovenox. Will need to switch to oral anticoagulation. 2. CAD with s/p CABG x 2 with a DE GUZMAN-LAD and SVG to the S-ryonvyzozr-YM. stable with ASA, BBlocker, Statin. 3. Hyperlipidemia - on Statin 4. Postop anemia - Stable. 5. C.Diff. He remains on Flagyl. Review of Systems - Review of Systems EENTM: reports: no symptoms reported Respiratory: reports: no symptoms reported Cardiac (ROS): reports: no symptoms reported ABD/GI: reports: diarrhea, poor appetite : reports: no symptoms reported Musculoskeletal: reports: no symptoms reported Skin: reports: no symptoms reported Neurological: reports: no symptoms reported
[2017-12-18] MEDS ORDERED: Digoxin 0.5 MG/2 ML AMP SLOW IVP SCH (15:00)
--- NOTE | 2017-12-18 17:24 | PRG ---
DATE OF SERVICE: 12/18/2017 SERVICE: Pulmonary Medicine. INTERVAL HISTORY: The patient is doing fine from a respiratory standpoint. He is on room air. David es any current fevers, chills, nausea, or vomiting. Otherwise, he is returning to his usual state of health. His heart remains regular. He just got put on new medications and takes couple of days to see whether or not it is going to control his rate, and convert him into sinus. That being said, he has no acute respiratory issues and his strength is improving day by day. He walked with physical th erapy and had no dyspnea. He is on room air. PHYSICAL EXAMINATION: VITAL SIGNS: T-max 101.7, pulse 123, blood pressure 120/59, respirations 20, saturation 96% on room air. GENERAL: The patient is awake and alert, in no apparent distress. LUNGS: Decent air entry. I do not appreciate prolonged expiratory phase or wheezing. There is no r honchi or crackles present. HEART: Normal rate and regular. ABDOMEN: Soft, nontender, and nondistended. Bowel sounds are positive. MUSCULOSKELETAL: No cyanosis or clubbing. There is no pitting in the bilateral lower extremities. NEUROLOGIC: Grossly nonfocal. LABORATORY DATA: Clostridium difficile antigen and toxin are positive. Respiratory virus panel was negative. ASSESSMENT: 1. Acute hypoxic respiratory failure, resolved. 2. Coronary artery disease, status post coronary artery bypass graft x2 vessels. 3. Sepsis without end organ damage. 4. Clostridium difficile colitis. DISCUSSION AND PLAN: The patient is currently doing well from a respiratory perspective. He has no further requirement for inpatient Pulmonary and Critical Care opinion. As such, we will sign off. P franciscaase call with additional questions or concerns moving forward.
[2017-12-18] MEDS: Apixaban 5 MG TAB PO SCH (20:35)
[2017-12-18] MEDS: Digoxin 0.5 MG/2 ML AMP SLOW IVP SCH (20:36)
[2017-12-18] MEDS: Atorvastatin Calcium 20 MG TAB PO SCH (20:36)
[2017-12-19] MEDS: Digoxin 0.5 MG/2 ML AMP SLOW IVP SCH (03:55)
[2017-12-19 09:24] VITALS: BMI 22.4
[2017-12-19] MEDS: Famotidine 20 MG TAB PO SCH ×2 (09:40→22:47)
[2017-12-19] MEDS: Tamsulosin HCl 0.4 MG CAP PO SCH (09:40)
[2017-12-19] MEDS: Aspirin 81 mg Enteric Coated Tablet PO SCH (09:40)
[2017-12-19] MEDS: Carvedilol 6.25 MG TAB PO SCH ×2 (09:40→18:04)
[2017-12-19] MEDS: Amiodarone 200 MG TAB PO SCH ×3 (09:40→22:46)
[2017-12-19] MEDS: Apixaban 5 MG TAB PO SCH ×2 (09:40→22:46)
[2017-12-19] MEDS: metroNIDAZOLE 500 MG TAB PO SCH ×3 (09:40→22:47)
[2017-12-19] MEDS: Digoxin 0.125 MG TAB PO SCH (09:41)
--- NOTE | 2017-12-19 12:19 | PRG ---
DATE OF SERVICE: 12/19/2017 I am seeing Mr. Augustin at our [facility] as an electrophysiology followup. SUBJECTIVE: Mr. Augustin seems to be doing fair. He has got significant palpitations on ambulation. OBJECTIVE: VITAL SIGNS: Blood pressure is 152/57, heart rate 90, respirations 18, temperature 98 degrees Fahren heit. GENERAL: He is an alert and oriented man in no apparent distress. NECK: Supple. Jugular veins not distended. CHEST: Coarse without crackles. CARDIOVASCULAR: Heart sounds are regular to rate and rhythm. No murmur or gallop. ABDOMEN: Benign. Bowel sounds positive. EXTREMITIES: Lower extremities without edema, clubbing or cyanosis. LABORATORY DATA: The EKG continues to reveal sustained atrial flutters with very typical morphology 2:1 AV conduction. Rates with this are over 150 beats per minute. LABORATORY DATA: None new. ASSESSMENT AND PLAN: Mr. Augustin is a 76-year-old man with prior history of coronary artery disease, bypass grafting surgery, atrial fibrillation/flutter postop. He had tried flecainide which organized his flutters to atrial flutter. This was transitioned to amiodarone which is still loading on. He is sustaining the atrial flutter currently. He also has some atypical flutters and coarse atrial fib rillation at times as well. These are more better rate controlled. I discussed the pros and cons of possible treatment options. Continue amiodarone therapy versus abla tion of atrial flutter circuit could be considered. It might be reasonable to proceed with the atria l flutter circuit which is relatively less extensive ablation procedure and might give us better rate control by eliminating the atrial flutter which tends to be the more rapid test to be with more rapi d ventricular rates. On the other hand, I would hold off on pulmonary venous isolation procedure unt il full recovery from the bypass surgery. Hence prolonged flutter episodes are the guidance for rupesh castillo of might be reasonable. I discussed these options with the patient, he understands the concept of the atrial flutter ablation . Risks and benefits detailed. He is willing to proceed understanding chance of infection, bleeding , tamponade, stroke, recurrence, and continued atrial fibrillation as well.
--- NOTE | 2017-12-19 12:58 | PDOC.CTH ---
<Adry Rai - Last Filed: 12/19/17 12:56> Cardiology Progress Note - Subjective The pt seen and examined. No overnight events. No cardiac complaints. His HR was up to 160s with walking with PTs today. He could feel fluttering in his chest during the - Objective Vital Signs Temp Pulse Resp BP Pulse Ox 12/19/17 09:41 86 12/19/17 08:00 98.0 F 90 18 115/57 L 95 12/19/17 04:00 97.8 F 84 18 117/62 96 Admit Weight 166 lb Weight 151 lb 12.8 oz 12/18/17 12/19/17 12/20/17 06:59 06:59 06:59 Intake Total 1480 980 Output Total 400 Balance 1480 580 - Physical Examination General/Neuro: alert & oriented x3 Neck: no JVD present Lungs: CTA Heart: other: (irregular) Abdomen: soft Extremities: other: (No edema) - Telemetry Telemetry Rhythm: Aflutter 90-110s - Labs Result Diagrams: 12/17/17 05:14 12/17/17 05:14 - Assessment/Plan 1. Post Afib - Remains in Aflutter with HR 90-110s and up to 160s with walking with PT today. Plan for Aflutter ablation tomorrow by Dr Acosta; on Eliquis 5mg BID. 2. CAD with s/p CABG x 2 on 12/11/17 with a DE GUZMAN-LAD and SVG to the L-circumflex -OM. stable with ASA, BBlocker, Statin. 3. Hyperlipidemia - on Statin 4. Postop anemia - Stable. 5. C.Diff. He remains on Flagyl. MAR reviewed * AFlutter ablation by Dr Acosta tomorrow Review of Systems - Review of Systems Constitutional: reports: no symptoms reported EENTM: reports: no symptoms reported Respiratory: reports: no symptoms reported Cardiac (ROS): reports: see HPI ABD/GI: reports: no symptoms reported : reports: no symptoms reported <Colt Garibay - Last Filed: 12/19/17 17:06> Cardiology Progress Note - Objective Vital Signs Temp Pulse Pulse Pulse Resp BP BP 12/19/17 12:00 82 18 12/19/17 09:50 103 H 84 145/62 H 115/52 L 12/19/17 09:41 86 12/19/17 08:00 98.0 F 82 18 BP Pulse Ox Pulse Ox Pulse Ox 12/19/17 12:00 145/62 H 98 12/19/17 09:50 98 95 12/19/17 09:41 12/19/17 08:00 115/57 L 95 Admit Weight 166 lb Weight 151 lb 12.8 oz 12/18/17 12/19/17 12/20/17 06:59 06:59 06:59 Intake Total 1480 980 Output Total 400 Balance 1480 580 - Labs Result Diagrams: 12/17/17 05:14 12/17/17 05:14 - Assessment/Plan Pt. seen and eval. by me. I agree with the A/P by the NOTE TAKER.
[2017-12-19] MEDS: Atorvastatin Calcium 20 MG TAB PO SCH (22:46)
[2017-12-20] MEDS: Carvedilol 6.25 MG TAB PO SCH ×2 (08:25→21:39)
[2017-12-20] MEDS: Tamsulosin HCl 0.4 MG CAP PO SCH (08:26)
[2017-12-20] MEDS: metroNIDAZOLE 500 MG TAB PO SCH ×3 (08:27→21:32)
[2017-12-20] MEDS: Famotidine 20 MG TAB PO SCH ×2 (08:27→21:32)
[2017-12-20] MEDS: Amiodarone 200 MG TAB PO SCH ×3 (08:27→21:32)
[2017-12-20] MEDS ORDERED: Lidocaine 1% (PF) 30 ML VIAL ONE (15:18)
[2017-12-20] MEDS ORDERED: Heparin 10,000 UNITS/1 ML VIAL ONE (15:19)
[2017-12-20] MEDS: Digoxin 0.125 MG TAB PO SCH (15:20)
[2017-12-20] MEDS: Apixaban 5 MG TAB PO SCH ×3 (15:20→22:49)
[2017-12-20] MEDS: Aspirin 81 mg Enteric Coated Tablet PO SCH (15:20)
[2017-12-20] MEDS ORDERED: Propofol 200 MG/20 ML VIAL ONE (16:01)
[2017-12-20] MEDS ORDERED: PHENYLEPHRINE-NS 100 MCG/ML 10 ML SYRINGE ONE (16:01)
[2017-12-20] MEDS ORDERED: Propofol 1,000 MG/100 ML VIAL IV ONE (16:34)
[2017-12-20] MEDS ORDERED: Clindamycin/D5W 900 mg/50 ml Premix Bag ONE (17:13)
[2017-12-20] MEDS ORDERED: Morphine Sulfate 2 MG/ML SYRINGE SLOW IVP PRN (17:50)
[2017-12-20] MEDS ORDERED: Meperidine HCl/PF 25 MG/ML VIAL SLOW IVP PRN (17:50)
[2017-12-20] MEDS ORDERED: Ondansetron HCl/PF 4 MG/2 ML Vial IVP PRN ×2 (17:50→20:20)
[2017-12-20] MEDS ORDERED: Promethazine HCl 25 MG/ML VIAL SLOW IVP PRN (17:50)
[2017-12-20] MEDS ORDERED: Promethazine HCl 25 MG/ML VIAL IM PRN (17:50)
[2017-12-20] MEDS ORDERED: Fentanyl 100 MCG/2 ML VIAL ONE (18:18)
[2017-12-20] MEDS ORDERED: Mag-Al 1200 mg/1200 mg/30 ML UDCUP PO PRN (20:20)
[2017-12-20] MEDS ORDERED: diphenhydrAMINE 25 MG CAP PO PRN (20:20)
[2017-12-20] MEDS ORDERED: Nitroglycerin 0.4 MG TAB (25 Tab Bottle) SL PRN (20:20)
[2017-12-20] MEDS ORDERED: Silver Sulfadiazine 1% Cream 50 GM JAR TOP PRN (20:20)
[2017-12-20] MEDS ORDERED: traMADol HCl 50 MG TAB PO PRN (20:20)
[2017-12-20] MEDS ORDERED: Bisacodyl 5 MG TAB PO PRN (20:20)
[2017-12-20] MEDS ORDERED: Temazepam 15 MG CAP PO PRN (20:20)
[2017-12-20] MEDS ORDERED: Bisacodyl 10 MG SUPP PR PRN (20:20)
[2017-12-20] MEDS ORDERED: Acetaminophen 325 MG TAB PO PRN (20:20)
[2017-12-20] MEDS: Atorvastatin Calcium 20 MG TAB PO SCH (21:32)
--- NOTE | 2017-12-21 00:34 | CCLSPC ---
ELECTROPHYSIOLOGY STUDY AND RADIOFREQUENCY ABLATION REPORT DATE OF PROCEDURE: 12/20/2017 REFERRING PHYSICIAN: Dr. Garibay. REASON FOR PROCEDURE: Mr. Augustin is a 76-year-old male with prior history of left main disease statu s post 2-vessel bypass surgery. Post-bypass surgery, he developed atrial fibrillation and flutter. Atrial fibrillation was controlled with antiarrhythmic agents like flecainide and then eventually ami odarone, but the flutter has been recurrent with rapid rates. He is here for EP study and radiofrequency ablation with a possible flutter circuit. The patient has been on Eliquis and has spontaneously converted to sinus rhythm prior to the procedure. PROCEDURE IN DETAIL: The patient received deep sedation by Anesthesia specialist. After adequate le ang of sedation achieved and the right femoral vein was prepped and draped and anesthetized using sub cutaneous lidocaine. The right femoral vein was accessed using ultrasound guidance and a two 8-Frenc h short sheaths were introduced. Through this, a decapolar CS catheter was advanced to the right atr ial His bundle, right ventricular and eventually through the CS position. Pacing, mapping and record ing were performed in each chamber. Following that, the basic EP study was obtained with the followi ng findings. The HV was normal in 4 milliseconds. The sinus cycle length 808, MT 74 and QR 69, abdirashid ected sinus node recovery time was 400 milliseconds. The AV Wenckebach cycle length was found at mil liseconds. Burst atrial pacing initially did not induce atrial arrhythmias, but then we proceeded wi th a cavotricuspid isthmus ablation with CS ------ pacing. This was not hence the typical atrial flu tter appearance on EKGs on chart. Following that, the cavotricuspid isthmus ablation was performed. ------ were pursued during the cav otricuspid isthmus ablation, atrial fibrillation and atrial flutter, both initiated. Eventually, atr ial flutter eliminated while atrial fibrillation remained despite the added IV amiodarone. Exact tra nsisthmus block was difficult to assess. At this point, the decision was made to terminate the procedure. CONCLUSION: 1. Inducible atrial flutter and fibrillation, both. 2. Successful cavotricuspid isthmus ablation. 3. Borderline sinus akosua, normal AV akosua function. 4. Atrial fibrillation present at the end of the case. IV amiodarone was given. PLAN: 1. Continue p.o. amiodarone for rate control of atrial fibrillation and possibly suppression of atri al fibrillation as well. 2. Continue oral anticoagulation. POS: [facility]
[2017-12-21] MEDS: Famotidine 20 MG TAB PO SCH ×2 (08:53→20:03)
[2017-12-21] MEDS: metroNIDAZOLE 500 MG TAB PO SCH ×3 (08:53→20:03)
[2017-12-21] MEDS: Aspirin 81 mg Enteric Coated Tablet PO SCH (08:53)
[2017-12-21] MEDS: Amiodarone 200 MG TAB PO SCH ×3 (08:53→20:03)
[2017-12-21] MEDS: Tamsulosin HCl 0.4 MG CAP PO SCH (08:53)
[2017-12-21] MEDS: Apixaban 5 MG TAB PO SCH ×2 (08:53→20:03)
[2017-12-21] MEDS: Carvedilol 6.25 MG TAB PO SCH (08:53)
[2017-12-21] MEDS: Digoxin 0.125 MG TAB PO SCH (08:54)
[2017-12-21] MEDS ORDERED: Carvedilol 3.125 MG TAB PO SCH ×3 (13:00→17:00)
[2017-12-21] MEDS: Atorvastatin Calcium 20 MG TAB PO SCH (20:03)
[2017-12-22] MEDS ORDERED: Carvedilol 3.125 MG TAB PO SCH (08:00)
[2017-12-22] MEDS: Digoxin 0.125 MG TAB PO SCH (08:19)
[2017-12-22] MEDS: Aspirin 81 mg Enteric Coated Tablet PO SCH (08:19)
[2017-12-22] MEDS: Amiodarone 200 MG TAB PO SCH (08:19)
[2017-12-22] MEDS: Apixaban 5 MG TAB PO SCH (08:19)
[2017-12-22] MEDS: metroNIDAZOLE 500 MG TAB PO SCH (08:20)
[2017-12-22] MEDS: Tamsulosin HCl 0.4 MG CAP PO SCH (08:20)
[2017-12-22] MEDS: Famotidine 20 MG TAB PO SCH (08:20)
[2017-12-22 08:22] VITALS: TEMP 97.4
--- NOTE | 2017-12-22 11:49 | DIS ---
DATE OF ADMISSION: 12/11/2017 DATE OF DISCHARGE: 12/22/2017 PRINCIPAL DIAGNOSIS: Coronary artery disease. SECONDARY DIAGNOSIS: Atrial fibrillation and flutter. PROCEDURES PERFORMED: Coronary artery bypass grafting x2 with left internal mammary artery to the LA D and reverse greater saphenous vein graft from aorta to obtuse marginal on 12/11/2017, EP study and radiofrequency ablation on 12/20/2017. HISTORY OF PRESENT ILLNESS AND HOSPITAL COURSE: The patient is a 76-year-old man with about a 2-year history of dyspnea on exertion and then about 2-1/2 weeks ago, began developing a gripping chest dis comfort. Cardiac catheterization demonstrated very high grade left main lesion and he was admitted f or elective revascularization. He initially did rather well. He had some problems related to urinar y dribbling that was relieved with the addition of Flomax and Proscar. He developed atrial fibrillat ion/flutter that initially was rate controlled, but persisted and did not definitively convert. He d eveloped diarrhea that was positive for C. difficile toxin and was started on Flagyl. After several days of atrial flutter with rate control, he spontaneously converted to sinus the morning that he was taken for an ablation. 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 He spontaneously converted the afternoon of postoperative day #10 and remained in sinus rhythm. He has been anticoagulated with Eliquis. He is on amiodarone 200 mg t.i.d., Coreg 3.125 mg b.i.d., digoxin 0.125 mg a day, baby aspirin and Eliquis 5 mg b.i.d. He is restarting his Crestor and he is to complete a 10 day course of Flagyl 500 mg t.i.d. FOLLOWUP: Will be with Dr. Severino and his sole painter per them.
[2017-12-22 11:56] VITALS: BP 114/57
== END 2017-12-22 13:44 | disposition home or self-care (01) | DRG 235 ==
LOC: SURG A 10:00 → CCU 15:57 → 2SE 12-12 23:11 → 2NO 12-18 21:44
PROVIDERS: ADMIT Thoracic Surgery (Cardiothoracic Vascular Surgery); ATTEND Thoracic Surgery (Cardiothoracic Vascular Surgery)
PROC: 02100Z9 Bypass Coronary Artery, One Artery from Left Internal Mammary, Open Approach (ICD-10-PCS; principal; 2017-12-11)
PROC: 021009W Bypass Coronary Artery, One Artery from Aorta with Autologous Venous Tissue, Open Approach (ICD-10-PCS; 2017-12-11)
PROC: 06BQ4ZZ Excision of Left Saphenous Vein, Percutaneous Endoscopic Approach (ICD-10-PCS; 2017-12-11)
PROC: 5A1221Z Performance of Cardiac Output, Continuous (ICD-10-PCS; 2017-12-11)
PROC: 02583ZZ Destruction of Conduction Mechanism, Percutaneous Approach (ICD-10-PCS; 2017-12-20)
PROC: 4A023FZ Measurement of Cardiac Rhythm, Percutaneous Approach (ICD-10-PCS; 2017-12-20)
PROC: 4A0234Z Measurement of Cardiac Electrical Activity, Percutaneous Approach (ICD-10-PCS; 2017-12-20)
PROC: 02K83ZZ Map Conduction Mechanism, Percutaneous Approach (ICD-10-PCS; 2017-12-20)
DX: I25.10 Atherosclerotic heart disease of native coronary artery without angina pectoris (principal); J96.01 Acute respiratory failure with hypoxia; A04.72 Enterocolitis due to Clostridium difficile, not specified as recurrent; I48.3 Typical atrial flutter; J40 Bronchitis, not specified as acute or chronic; I48.0 Paroxysmal atrial fibrillation; D64.9 Anemia, unspecified; M19.90 Unspecified osteoarthritis, unspecified site; N40.0 Benign prostatic hyperplasia without lower urinary tract symptoms; E78.2 Mixed hyperlipidemia; Z82.49 Family history of ischemic heart disease and other diseases of the circulatory system
CPT/HCPCS: 36415; 36416; 71045; 76942; 80048; 82565; 82805; 85014; 85018; 85025; 85049; 85610; 85730; 86850; 86900; 86901; 87324; 87449; 87633; 87798; 93005; 93010; 93613; 93621; 93623; 93653; 93798; 94002; 94150; A4216; C1730; C1769; J0282; J1160; J1265; J1642; J1644; J1650; J1815; J1885; J2001; J2250; J2270; J2405; J2440; J2704; J2720; J3010; J3370; J3475; J3480; J3490; J7050; P9045; S0017; S0028

== ENCOUNTER 2018-02-12 09:57 | Outpatient (CLI) | payer MEDICARE ==
--- NOTE | 2018-02-13 06:22 | EKG ---
Test Reason : Blood Pressure : / mmHG Vent. Rate : 052 BPM Atrial Rate : 052 BPM P-R Int : 186 ms QRS Dur : 082 ms QT Int : 434 ms P-R-T Axes : 067 066 074 degrees QTc Int : 403 ms Sinus bradycardia Nonspecific T wave abnormality Abnormal ECG When compared with ECG of 11-DEC-2017 16:14, Vent. rate has decreased BY 40 BPM Nonspecific T wave abnormality now evident in Anterolateral leads QT has shortened Confirmed by TAWANNA NAPIER ([id number]) on 02/13/2018 6:09:05 AM Referred By: SOM Confirmed By:TAWANNA NAPIER
== END 2018-02-12 09:58 | disposition home or self-care (01) ==
LOC: LABBT 09:57
PROVIDERS: ATTEND Internal Medicine Cardiovascular Disease
DX: Z01.818 Encounter for other preprocedural examination (principal); I48.91 Unspecified atrial fibrillation
CPT/HCPCS: 93005; 93010

== ENCOUNTER → 2018-02-18 | Day surgery (SDC) | payer MEDICARE ==
[2018-02-12 10:22] VITALS: BMI 22.2
[2018-02-12 11:15] LABS: #Eosinphils 0.2 thou/uL (0.0-0.7); #Lymphocytes 1.3 thou/uL (1.20-3.40); #Monocytes 0.8 thou/uL (0.11-0.59); #Neutrophils 4.8 thou/uL (1.40-6.50); %Basophils 0.4 % (0.0-1.0); %Eosinophils 2.8 % (0.0-10.0); %Lymphocytes 17.9 % (21.0-51.0); %Monocytes 10.8 % (0.0-10.0); %Neutrophils 68.2 % (42.0-75.0); Hemoglobin 12.7 g/dL (14.0-18.0); Mean Corpuscular HGB CONC 33.5 g/dL (32.0-36.0); Mean Corpuscular Hemoglobin 32.4 pg (27.0-31.0); Mean Corpuscular Volume 96.7 fl (80.0-94.0); Mean Platelet Volume 9.4 fL (7.4-10.4); Platelet Count 181 thou/uL (130-400); Red Blood Cell (RBC) Count 3.92 mill/uL (4.70-6.10); White Blood Cell (WBC) Count 7.1 thou/uL (4.8-10.8)
[2018-02-12 11:20] LABS: INR-International Normal Ratio 1.3; Prothrombin Time 16.2 SEC (12.0-14.7)
[2018-02-12 11:21] LABS: PTT 36.3 SEC (22.9-36.1)
[2018-02-12 11:34] LABS: Anion Gap 11 mmol/L (10-20); BUN (Urea Nitrogen) 19 mg/dL (8.4-25.7); Calc. Creatinine Clearance 61 mL/min (70-130); Calcium 9.1 mg/dL (7.8-10.44); Carbon Dioxide 27 mmol/L (23-31); Chloride 105 mmol/L (98-107); Estimated GFR-MDRD 75; Glucose 85 mg/dL (83-110); Potassium 4.6 mmol/L (3.5-5.1); Sodium 138 mmol/L (136-145)
--- NOTE | 2018-02-23 08:44 | EKG ---
Test Reason : PREOP Blood Pressure : / mmHG Vent. Rate : 062 BPM Atrial Rate : 062 BPM P-R Int : 194 ms QRS Dur : 084 ms QT Int : 432 ms P-R-T Axes : 062 025 079 degrees QTc Int : 438 ms Normal sinus rhythm Nonspecific T wave abnormality Abnormal ECG When compared with ECG of 12-FEB-2018 09:49, No significant change was found Confirmed by CALEB RUSSELL, NIRMAL ([id number]) on 02/23/2018 8:44:15 AM Referred By: SOM Confirmed By:NIRMAL ELLIS MD
== END ==
LOC: CCL 10:48
PROVIDERS: ATTEND Internal Medicine Cardiovascular Disease
DX: I48.0 Paroxysmal atrial fibrillation (principal); I25.10 Atherosclerotic heart disease of native coronary artery without angina pectoris; I48.3 Typical atrial flutter; E78.00 Pure hypercholesterolemia, unspecified; N40.0 Benign prostatic hyperplasia without lower urinary tract symptoms; E78.5 Hyperlipidemia, unspecified; Z53.9 Procedure and treatment not carried out, unspecified reason; Z79.82 Long term (current) use of aspirin; Z79.01 Long term (current) use of anticoagulants; Z79.899 Other long term (current) drug therapy
CPT/HCPCS: 93005; 93010

== ENCOUNTER 2022-12-31 13:26 | Outpatient (CLI) | payer MEDICARE ==
[~2022-12-31 13:26] MED LIST: Iopamidol 370 76% 100 ML VIAL ONE
== END 2022-12-31 13:27 | disposition home or self-care (01) ==
LOC: BICCT 13:26
PROVIDERS: ATTEND Internal Medicine Cardiovascular Disease
DX: R09.89 Other specified symptoms and signs involving the circulatory and respiratory systems (principal); I25.10 Atherosclerotic heart disease of native coronary artery without angina pectoris
CPT/HCPCS: 70498; 82565; Q9967